=== PATIENT | female | born 1955 | race Caucasian/White ===

== ENCOUNTER 2021-03-23 05:04 | Observation (INO) ==
--- NOTE | 2021-02-26 15:38 | PAT Medication Instructions ---
Medication Instructions Date of Service February 26, 2021 Home Medications atorvastatin 10 mg tablet 10 mg PO HS levothyroxine 112 mcg capsule 112 mcg PO QAM acetaminophen [Tylenol Extra Strength] 1,000 mg PO Q6H PRN calcium carbonate-vitamin D3 [Calcium 500 + D] 2 tab PO HS cyanocobalamin (vitamin B-12) 1,000 mcg PO QAM naproxen sodium [Aleve] 440 mg PO BID PRN ASK your surgeon for instructions naproxen sodium [Aleve] 440 mg PO BID PRN DO NOT take the morning of surgery cyanocobalamin (vitamin B-12) 1,000 mcg PO QAM Take morning of surgery With a small sip of water, OTHERWISE NOTHING TO EAT OR DRINK AFTER MIDNIGHT: levothyroxine 112 mcg capsule 112 mcg PO QAM acetaminophen [Tylenol Extra Strength] 1,000 mg PO Q6H PRN (okay to take up to 4 hours prior to surgery if needed) Take evening before surgery atorvastatin 10 mg tablet 10 mg PO HS acetaminophen [Tylenol Extra Strength] 1,000 mg PO Q6H PRN (if needed) calcium carbonate-vitamin D3 [Calcium 500 + D] 2 tab PO HS Other Notes If you have any questions please call us at [phone] or [phone] or [phone] or [phone]
--- NOTE | 2021-03-03 10:24 | Anesthesiology Consultation ---
Date of Service March 03, 2021 Assessment & Plan (1) Encounter for pre-operative examination: Chart Review Chart Review: Acceptable Risk for Surgery (pending preop Covid testing results ) and Patient seen in Pre Admission Testing Per PAT appt on 03/03/21, patient resides in [facility]. Wears mask, uses good hand hygiene and socially distances. Pt visited grandson in [place], [place] on 02/18/21 (stayed in hotel). No known Covid positive contacts or Covid related symptoms. No known Covid infection in the past 90 days. Preop Covid testing scheduled 03/17/21= will await results. Educated patient to follow up with surgeon's office regarding Covid testing. Educated on importance of self quarantining, social distancing and wearing mask in public both for the patient and household contacts. Teaching & Discussion Pre-Anesthesia Teaching/Discussion Notes: Instructed NPO after midnight before surgery,except medications with 15 cc of water. Medication instructions provid ed according to the PAT guidelines. History Surgery Operation Date: 03/23/21 10:40 Proposed Procedures p Left Total Hip Arthroplasty - Elías Alexandre MD Height/Weight Height: 5 ft 8 in Weight: 79.7 kg Allergies Allergy/AdvReac Type Severity Reaction Status Date / Time No Known Allergies Allergy Verified 02/25/21 08:35 Medications Home Medications Medication Instructions Recorded Confirmed Last Taken atorvastatin 10 mg tablet 10 mg PO HS 02/22/21 02/25/21 Unknown levothyroxine 112 mcg capsule 112 mcg PO QAM 02/22/21 02/25/21 Unknown acetaminophen [Tylenol Extra 1,000 mg PO Q6H PRN 02/25/21 02/25/21 Unknown Strength] calcium carbonate-vitamin D3 2 tab PO HS 02/25/21 02/25/21 Unknown [Calcium 500 + D] cyanocobalamin (vitamin B-12) 1,000 mcg PO QAM 02/25/21 02/25/21 Unknown naproxen sodium [Aleve] 440 mg PO BID PRN 02/25/21 02/25/21 Unknown Past Medical History Medical History Bilateral hip joint arthritis Hyperlipidemia Well controlled and stable with med Hypothyroidism Well controlled and stable with med Migraine HX Exercise / Class Metabolic Activity II 4-5 Yardwork/Stairs/Walk up hill (ONE FLIGHT OF STAIRS - NO CHEST PAIN OR SOB ) Past Surgical History Surgical History H/O tubal ligation History of bunionectomy History of colonoscopy X 2 [place] teeth removed Past Anesthesia History No Hx of Anesthesia Complications and No Family Hx of Anesthesia Complications History of PONV No Hx of PONV and No Hx of Motion Sickness Social History Smoking Status: Never smoker Do You Dip or Chew Tobacco: No Hx Alcohol Use: Yes Alcohol type: wine alcohol intake frequency: a few times a month Hx Substance Use: No Review of Systems Patient denies chest pain, shortness of breath, dyspnea on exertion, reflux, cough, wheezing, palpitations. No hx of seizures, stroke, PR, apnea/snoring. No hx of blood clots or blood transfusions Physical Exam Vital Signs VITALS BP 123/77 P 77 TEMP 97.4 SP02 98% RESP 16 Constitutional no acute distress ENMT Mouth: no TMJ clicking Thyromental Distance: > or= 3.5 Finger Breadths (3.5) Mallampati Class: I Missing molar Capped to molars Neck neck extension not limited Respiratory normal respiratory effort; no respiratory distress Auscultation: lungs clear to auscultation bilaterally; no wheezes Cardiovascular Rate/Rhythm: regular rate and regular rhythm Heart Sounds: no murmur Vessels: no carotid bruit Musculoskeletal Spine: + pain with cervical ROM (mild stiffness ) Extremities: extremities normal to inspection Psychiatric Orientation: alert Testing Laboratory Results 03/03/21 10:41 03/03/21 10:51 PT 10.1 Seconds (9.0-12.0) 03/03/21 10:41 INR 1.0 (0.9-1.1) 03/03/21 10:41 APTT 26.2 Seconds (21.0-31.0) 03/03/21 10:41 Blood Type O Positive 03/03/21 10:41 Antibody Screen NEGATIVE 03/03/21 10:41 Electrocardiogram Date: 03/03/21 Findings: + NSR @ (68bpm) Normal EKG per cardio Chest X-Ray Date: 03/03/21 Findings: + NAD Incidental note is made of mild S-shaped curvature of the thoracic spine.
--- NOTE | 2021-03-03 11:11 | XRay Report ---
XR chest Pre-admission PA/Lat CLINICAL HISTORY: Preoperative evaluation. COMPARISON STUDY: No previous studies for comparison. FINDINGS: Lung volumes are normal. Lungs are clear. There is no pneumothorax or pleural effusion. Car diac size is normal. Mediastinal contours are normal. There is no evidence for pulmonary edema. Incid ental note is made of mild S-shaped curvature of the thoracic spine. IMPRESSION: No acute cardiopulmonary findings. ACT 112: Negative or not required by law. Electronically signed by: Ramez Perez M.D. 03/03/2021 11:09 AM
[2021-03-03 12:06] LABS: Basophils # (auto) 0.05 K/uL (0-0.2); Basophils % (auto) 0.9 %; Eosinophils # (auto) 0.07 K/uL (0-0.5); Eosinophils % (auto) 1.2 %; Hemoglobin 13.8 g/dL (12.0-16.0); Immature Granulocytes # (auto) 0.01 K/uL (0.00-0.02); Immature Granulocytes % (auto) 0.2 %; Lymphocytes # (auto) 1.96 K/uL (1.2-3.4); Lymphocytes % (auto) 33.6 %; Mean Corpuscular Hemoglobin 31.6 pg (25-34); Mean Corpuscular Hgb Conc 32.9 g/dL (32-36); Mean Corpuscular Volume 96.1 fL (80-100); Mean Platelet Volume 12.5 fL (7.4-10.4); Monocytes # (auto) 0.65 K/uL (0.11-0.59); Monocytes % (auto) 11.1 %; Neutrophils # (auto) 3.09 K/uL (1.4-6.5); Platelet Count 240 K/uL (130-400); RDW Coefficient of Variation 13.3 % (11.5-14.5); RDW Standard Deviation 47.3 fL (36.4-46.3); Red Blood Count 4.37 M/uL (4.2-5.4); White Blood Count 5.83 K/uL (4.8-10.8)
[2021-03-03 12:12] LABS: BUN Creatinine Ratio 18.8 (10-20); Calcium 9.8 mg/dl (8.5-10.1); Creatinine Clr Calc Pharmacy 95.3 ml/min; Est GFR (African American) 108.4; Est GFR (Non-African American) 93.5; Potassium 3.9 mmol/L (3.5-5.1)
[2021-03-03 12:17] LABS: Partial Thromboplastin Time 26.2 Seconds (21.0-31.0); Prothrombin Time 10.1 Seconds (9.0-12.0)
--- NOTE | 2021-03-04 06:13 | Electrocardiogram Report ---
Test Reason : Blood Pressure : / mmHG Vent. Rate : 068 BPM Atrial Rate : 068 BPM P-R Int : 130 ms QRS Dur : 092 ms QT Int : 394 ms P-R-T Axes : 072 065 073 degrees QTc Int : 418 ms Normal sinus rhythm Normal ECG No previous ECGs available Confirmed by Chris Munroe ([id number]) on 03/04/2021 6:12:43 AM Referred By: Elías Alexandre Confirmed By:Chris Munroe
[2021-03-23] MEDS ORDERED: LR 60ML/HR IV SCH (06:00)
[2021-03-23] MEDS ORDERED: TRANEXAMIC ACID 1,000 MG **IV Pre-op IV SCH (06:00)
[2021-03-23] MEDS ORDERED: Scopolamine 1 MG TDSY TD SCH (06:00)
[2021-03-23] MEDS ORDERED: ceFAZolin 2000MG 2,000 MG/15 ML SYR IV SCH (06:00)
[2021-03-23] MEDS ORDERED: FAMOTIDINE 20 MG TAB PO SCH (06:00)
[2021-03-23] MEDS ORDERED: LR 500ML BOLUS, THEN 15ML/HR IV SCH (06:00)
[2021-03-23] MEDS ORDERED: ACETAMINOPHEN 500 MG TAB PO SCH (06:00)
[2021-03-23] MEDS ORDERED: GABAPENTIN 600 MG DOSE PO SCH (06:00)
[2021-03-23] MEDS ORDERED: BUPIVACAINE 0.5 % 5 MG/1 ML PF 10ML VIAL ONE (06:22)
[2021-03-23] MEDS ORDERED: MoRPHine SULFATE PF 1 MG/ML 10 ML AMP/VIAL ONE (06:24)
[2021-03-23] MEDS ORDERED: MIDAZOLAM HCL 1 MG/ML 2ML VIAL ONE (06:24)
[2021-03-23] MEDS ORDERED: fentaNYL citrate 100 MCG/2 ML VIAL ONE (06:24)
[2021-03-23] MEDS ORDERED: PROPOFOL IV EMULSION 10 MG/ML 20 ML VIAL IV ONE (06:24)
[2021-03-23] MEDS ORDERED: BUPIVACAINE/EPINEPHRINE 0.5% MPF 1:200,000 30 ML VIAL ONE (06:34)
--- NOTE | 2021-03-23 06:52 | History & Physical Bridge Note ---
Date of Service March 23, 2021 History & Physical Bridge Note I have examined the patient, reviewed the History & Physical and in the interval since the performance of the History & Physical I have noted the following changes of clinical significance: no changes noted
[2021-03-23] MEDS ORDERED: NALOXONE HCL 1 MG in SODIUM CHLORIDE 0.9% 1000ML 1,000 ML IV PRN (07:37)
[2021-03-23] MEDS ORDERED: MoRPHine SULFATE PF 1 MG/ML 10 ML AMP/VIAL INT SPINAL ONE (07:37)
[2021-03-23] MEDS ORDERED: MEPERIDINE HCL 25 MG/ML CARP/VIAL IV PRN (07:37)
[2021-03-23] MEDS ORDERED: NALOXONE HCL 0.4 MG/1 ML VIAL/CARP IV PRN ×2 (07:37→09:42)
[2021-03-23] MEDS ORDERED: diphenhydrAMINE 50 MG/ML VIAL IV PRN (07:37)
[2021-03-23] MEDS ORDERED: NALOXONE HCL 0.08 MG in SYRINGE 1.8 ML IV PRN (07:37)
[2021-03-23] MEDS ORDERED: LACTATED RINGER'S 500 ML IV PRN (07:37)
[2021-03-23] MEDS ORDERED: ePHEDrine sulfate 50 MG/ML AMP IV PRN (07:37)
[2021-03-23] MEDS ORDERED: ONDANSETRON INJ 2 MG/ML 2 ML VIAL IV PRN (07:37)
[2021-03-23] MEDS ORDERED: SODIUM CHLORIDE 0.9% 1000ML 1,000 ML IV SCH (07:45)
[2021-03-23] MEDS ORDERED: DC INTRASPINAL MORPHINE SCH (07:45)
[2021-03-23] MEDS ORDERED: NO NARCOTICS OR SEDATIVES SCH (07:45)
--- NOTE | 2021-03-23 08:50 | Operative Report ---
Post Operative Report Pre & Post Diagnosis Operation Date: 03/23/21 07:00 Pre-Op Diagnosis: Left Hip Advanced Degenerative Joint Disease Post-Op Diagnosis: Left Hip Advanced Degenerative Joint Disease I identified the patient and participated in the time-out.: Yes Procedure Operation Date: 03/23/21 07:00 Actual Procedures p Left Total Hip Arthroplasty--Uncemented(Left) - Elías Alexandre MD Surgeon Elías Alexandre MD Screen Printing Equipment Setter KAILA Morris Estimated Blood Loss 200 Findings Consistent with Post-Op Diagnosis Operative findings were advanced left hip DJD. She had extensive grade 4 [id number] disease of the femoral head and acetabulum. She had osteophytes around the femoral head as well as the large anterior acetabular osteophyte. She had a little bit of retroversion of her acetabulum itself. Moderate-sized joint effusion. Very short and valgus angled femoral neck. Fluids 800 cc Specimens Left femoral head sent to pathology. Drains None Anesthesia Type Spinal MAC Complications none Disposition Accompanied Patient To Recovery: Yes Disposition: Recovery Room Indications Patient is a 65-year-old female whose had a history of pretty rapidly progressive left hip pain discomfort is gotten singly worse over the past 6 months. She failed all conservative measures. X-rays revealed advanced left hip DJD. She also had significant deformity to the proximal femur with a very valgus neck. She has cystic change on both sides of joint. She elected proceed with surgical treatment. Description of Procedure Operative implants consist of: 1. Biomet G7 size 56 mm acetabular shell. 2. 6.5 cancellous acetabular screws 135 mm length 125 mm length. 3. [place] hole personalization specialist. 4. Highly cross-linked polyethylene liner with a 56 mm outer diameter 36 mm inner diameter. 5. DePuy [place] size 13 KLA femoral stem. 6. +5/36 mm ceramic articular ball. Patient was taken to the operating, identified, placed on the operating table supine position but all contractors were properly padded. IV antibiotics tried by anesthesia team. Spinal anesthetic had been implemented holding area. Brown catheter was placed in sterile fashion. The patient was then placed in the right lateral decubitus position. An axillary roll was placed. A Stulberg hip positioner was used for positioning. The left hip and leg were then prepped and draped in usual sterile fashion. A posterior lateral approach left hip was then performed to a curvilinear incision centered over the greater trochanter but sharp dissection got through subcutaneous this down over the IT band gluteal fascia the IT band gluteal fascia incised longitudinally in line with the skin incision. The underlying greater bursa was excised. We did have to extend the incision slightly due to the very valgus neck which required a little bit longer open incision. The piriformis and external rotators along with the posterior capsule were then carefully released from the posterior aspect of the hip joint as a single layer. Great care was taken throughout the procedure protect the sciatic nerve at all times. Hip was then internally rotated and dislocated. Femoral neck osteotomy cut was made with Final Cut about 20 mm above the lesser trochanter. Femoral head was removed and sent for pathology. The femur was retracted anteriorly. Attention drawn the acetabulum. The acetabular labrum was excised per the pulmonary fat was excised. Sequential reaming the acetabulum was then performed again with size 43 and progressing up to 55. I did reamed a little bit with a 56 reamer and then placed a 56 cup. We placed instance in about 40 degrees lateral plane and 20 degrees of anteversion. Was fixed with two 6.5 cancellous acetabular screws. The large anterior osteophyte was removed. Trial liner was placed. Attention drawn the femur. The proximal femur was entered with a cookie-cutter followed by canal finder. I then broached begin the size 8. Her bone was fairly cancellous. We broached up to a 13 which had excellent fit. It was still just a little bit proud but I did not want to go up and down any harder. We then trialed the hip. With a standard offset/standard neck length just seemed a little bit tight. We could relocate the hip but it just seemed a bit tight and I was afraid that if I could not put the implant down that I could not shorten the neck. Therefore elected to place a short neck which seem to recreate leg length more appropriately and soft tissue tension appropriately. With a +5 articular ball the hip was fully stable in full extension and external rotation flexion to 90 degrees internal rotation over [address] these implants. All trial implants were removed. An apex hole personalization specialist was placed but highly cross-linked polyethylene liner was placed. A DePuy size 13 KLA femoral stem was impacted in position. +5/36 mm ceramic articular ball was placed and hip was located. Was fully stable. Attention drawn toward closing. The wound was irrigated scope soft pulsatile lavage solution. I did inject locally with 60 cc of half percent Marcaine with epinephrine. The posterior capsule and external rotators were then repaired through drill holes in the posterior trochanter as a single layer with #2 Tycron suture. The IT band gluteal fascia then closed in 1 PDS suture in running fashion the subcutaneous tissue was then closed with 2 layers the deep layer #1 Vicryl suture and subcutaneous tissues with 2-0 Dexon suture in a buried interrupted fashion. Skin was closed skin willis. Leg was then cleaned dried and a sterile dressing both Xeroform, 4 x 4's, sterile ABD pad and foam tape was applied. Patient then transferred to the recovery room in stable condition. Patient tolerated the procedure well and there were no complications. Mayo Morris, my physician clinical assistant professor, was present for the entire procedure. His assistance was essential and required for appropriate patient positioning, prepping and draping, surgical exposure, performing the technical details of the operation, placement the implants, closure of the wound, and placement of the sterile bandage. I attest to the content of the Intraoperative Record and any orders documented therein. Any exceptions are noted below.
--- NOTE | 2021-03-23 09:03 | Anesthesiology Progress Note ---
Date of Service March 23, 2021 Anesthesia Post Procedure Vital Signs Vital Signs: Temp Pulse Pulse Resp BP Pulse Ox 03/23/21 08:55 80 14 92/58 L 93 03/23/21 08:45 78 12 93/52 L 96 03/23/21 08:37 97.3 F L 79 20 91/58 L 100 03/23/21 06:00 97.9 F 18 L 18 112/65 97 03/23/21 05:39 97.7 F 72 18 122/70 96 Transfer of Care Handoff Completed per policy Notes Mental Status: alert / awake / arousable and participated in evaluation Patient Amnestic to Procedure: Yes Nausea / Vomiting: adequately controlled Pain: adequately controlled Airway Patency, RR, SpO2: stable & adequate BP & HR: stable & adequate Hydration State: stable & adequate Neuraxial Anesthesia: was administered and sensory block is resolving Anesthetic Complications: no major complications apparent and Pt Satisfied with anesthetic care
[2021-03-23] MEDS: SODIUM CHLORIDE 0.9% 1000ML 1,000 ML IV SCH ×2 (09:40→19:52)
[2021-03-23] MEDS ORDERED: bisacodyL 10 MG SUPP PR PRN (09:42)
[2021-03-23] MEDS ORDERED: ALUMINUM/MAGNESIUM SUSP 30 ML UDC PO PRN (09:42)
[2021-03-23] MEDS ORDERED: MAGNESIUM HYDROXIDE SUSP 30 ML UDC PO PRN (09:42)
[2021-03-23] MEDS ORDERED: METOCLOPRAMIDE HCL INJ 5 MG/ML 2 ML VIAL IV PRN (09:42)
[2021-03-23] MEDS ORDERED: traMADol HCL 50 MG TABLET PO PRN (09:42)
--- NOTE | 2021-03-23 09:57 | XRay Report ---
XR hip 1V LT w pelvis CLINICAL HISTORY: IN PACU - A/P PELVIS and LATERAL HIP COMPARISON: None. DISCUSSION: There are postsurgical changes of a total left hip arthroplasty. The acetabular femoral c omponents appear well seated. There is no dislocation. There are moderate osteoarthritic changes pres ent within the right hip. There is a Brown catheter in place. There is gas present within the soft ti ssues of the left hip consistent with recent surgery. IMPRESSION: Postsurgical changes of a total left hip arthroplasty. No evidence of dislocation. ACT 112: Negative or not required by law. Electronically signed by: Jorge A Chavez M.D. 03/23/2021 9:56 AM
[2021-03-23] MEDS: LEVOTHYROXINE SODIUM 112 MCG TABLET PO SCH (10:58)
[2021-03-23] MEDS: CYANOCOBALAMIN 500 MCG TABLET (VITAMIN B-12) PO SCH (10:58)
[2021-03-23] MEDS: DOCUSATE SODIUM 100 MG CAP PO SCH ×2 (10:58→21:44)
[2021-03-23] MEDS: MULTIVITAMIN TAB PO SCH (10:59)
[2021-03-23] MEDS: KETOROLAC 30 MG/ML VIAL IV SCH ×3 (11:12→23:12)
[2021-03-23] MEDS: ceFAZolin 1000MG 1,000 MG/7.5 ML SYR IV SCH ×2 (14:52→23:15)
[2021-03-23] MEDS ORDERED: TRANEXAMIC ACID / 0.7% NACL 1,000 MG/100 ML BAG IV SCH (15:00)
[2021-03-23] MEDS: Scopolamine CHECK PATCH PLACEMENT SCH ×2 (16:00→23:48)
[2021-03-23] MEDS: ASCORBIC ACID 500 MG TAB PO SCH (17:49)
[2021-03-23] MEDS ORDERED: CALCIUM 600MG + VIT D 400 IU TAB PO SCH (21:00)
[2021-03-23] MEDS ORDERED: ATORVASTATIN 10 MG TAB PO SCH (21:00)
[2021-03-23] MEDS ORDERED: SENNA 8.6 MG TAB PO SCH (21:00)
[2021-03-23] MEDS: ACETAMINOPHEN 500 MG TAB PO SCH (21:43)
[2021-03-23] MEDS: ASPIRIN 81 MG ECTAB PO SCH ×3 (21:43→21:49)
[2021-03-23] MEDS: PROSOURCE NO CARB 30 ML/PKT PO SCH (21:45)
[2021-03-24] MEDS ORDERED: traMADol HCL 50 MG TABLET PO PRN (01:37)
[2021-03-24] MEDS ORDERED: diphenhydrAMINE Capsule 25 MG CAP PO PRN (01:37)
[2021-03-24] MEDS ORDERED: HYDROmorphone INJ 0.5 MG/0.5 ML SYR IV PRN (01:37)
[2021-03-24] MEDS ORDERED: ONDANSETRON INJ 2 MG/ML 2 ML VIAL IV PRN (01:37)
[2021-03-24] MEDS: SODIUM CHLORIDE 0.9% 1000ML 1,000 ML IV SCH (03:37)
[2021-03-24] MEDS: KETOROLAC 30 MG/ML VIAL IV SCH ×2 (05:32→10:22)
[2021-03-24] MEDS: LEVOTHYROXINE SODIUM 112 MCG TABLET PO SCH (05:33)
[2021-03-24 06:46] LABS: Basophils # (auto) 0.02 K/uL (0-0.2); Basophils % (auto) 0.3 %; Eosinophils # (auto) 0.05 K/uL (0-0.5); Eosinophils % (auto) 0.7 %; Hematocrit (blood only) 33.6 % (37-47); Hemoglobin 11.1 g/dL (12.0-16.0); Immature Granulocytes # (auto) 0.01 K/uL (0.00-0.02); Immature Granulocytes % (auto) 0.1 %; Lymphocytes # (auto) 1.95 K/uL (1.2-3.4); Lymphocytes % (auto) 28.8 %; Mean Corpuscular Hemoglobin 31.7 pg (25-34); Mean Platelet Volume 11.6 fL (7.4-10.4); Monocytes % (auto) 11.8 %; Neutrophils # (auto) 3.93 K/uL (1.4-6.5); Neutrophils % (auto) 58.3 %; Platelet Count 168 K/uL (130-400); RDW Coefficient of Variation 13.4 % (11.5-14.5); RDW Standard Deviation 46.9 fL (36.4-46.3); White Blood Count 6.76 K/uL (4.8-10.8)
[2021-03-24 07:17] LABS: Calcium 8.1 mg/dl (8.5-10.1); Creatinine Clr Calc Pharmacy 119.5 ml/min; Est GFR (African American) 117.1 ml/min; Potassium 3.7 mmol/L (3.5-5.1)
[2021-03-24] MEDS ORDERED: dexAMETHasone 10 MG in SYRINGE 0 ML IV SCH (08:00)
[2021-03-24] MEDS: PROSOURCE NO CARB 30 ML/PKT PO SCH ×2 (08:46→13:58)
[2021-03-24] MEDS: ASPIRIN 81 MG ECTAB PO SCH ×2 (08:46→08:47)
[2021-03-24] MEDS: CYANOCOBALAMIN 500 MCG TABLET (VITAMIN B-12) PO SCH (08:46)
[2021-03-24] MEDS: ASCORBIC ACID 500 MG TAB PO SCH (08:47)
[2021-03-24] MEDS: DOCUSATE SODIUM 100 MG CAP PO SCH (08:47)
[2021-03-24] MEDS: MULTIVITAMIN TAB PO SCH (08:47)
[2021-03-24] MEDS: ACETAMINOPHEN 500 MG TAB PO SCH ×2 (08:48→13:58)
[2021-03-24] MEDS: Scopolamine CHECK PATCH PLACEMENT SCH (08:48)
--- NOTE | 2021-03-24 15:56 | Progress Notes ---
DATE: 03/24/2021 SUBJECTIVE: A 65-year-old female postoperative day 1 from a left hip replacement. She is doing well. Pain is controlled. She says it is more like just a soreness. No chest pain or shortness of breath. Not feeling dizzy or lightheaded. Therapy went well. OBJECTIVE: VITAL SIGNS: Temperature 36.8. Vital signs stable. GENERAL: Shows a pleasant, middle-aged female. She is sitting up in her bed, looks quite comfortable. LUNGS: Clear to auscultation. HEART: Has a regular rate and rhythm. ABDOMEN: Soft, nontender, nondistended. EXTREMITIES: Grossly neurovascularly intact except as follows. Examination of the left lower extremity reveals the dressing to be clean, dry and intact. Leg lengths were equal. Hip is located. Thigh is soft and supple. She is neurologically intact. LABORATORY DATA: Hemoglobin 11.1. Hematocrit 33.6. Electrolytes are stable. ASSESSMENT: A 65-year-old white female postop day 1 from a left hip replacement, doing well. Her pain is controlled. Hip is located. She is neurologically intact. PLAN: 1. DVT prophylaxis including thigh-high TEDs, SCDs, and aspirin twice a day. 2. PT/OT. Weight bear as tolerated. Left total hip protocol. 3. Pain control, doing well with current pain regimen. 4. Disposition: Plan to discharge to home with some home health later today if pain controlled.
--- NOTE | 2021-03-27 15:35 | Discharge Summary ---
Date of Service March 27, 2021 Discharge Data Procedures Performed Operation Date: 03/23/21 07:00 Actual Procedures p Left Total Hip Arthroplasty--Uncemented(Left) - Elías Alexandre MD Hospital Course (1) Status post total replacement of left hip: This patient is a 65 year old admitted on 03/23/21 and underwent total hip arthroplasty. She tolerated the procedure well and there were no complications. Transferred to the PACU post op and later to the orthopedic floor for further care. She was given ancef for antibiotic prophylaxis. She was also given VICTORINA stockings, SCDs, and aspirin for DVT prophylaxis. Hemoglobin, hematocrit, and vital signs were monitored during her hospital stay and remained stable. Did not require any blood transfusions. There were no complications during her hospital stay. By post op day #1 the patient was tolerating a regular diet, pain was reasonably controlled with oral pain medicine, and she was participating in physical therapy. On post op day #1 the patient was discharged home and set up with home health care. She was given printed discharge instructions including prescriptions for extra strength tylenol, aspirin, and tramadol. Continue physical therapy, weight bearing as tolerated. Continue hip precautions. Continue VICTORINA stockings. Follow up approximately 2 weeks post op or sooner if there are problems or concerns. Coding Level of Care Code None Diagnoses Status post total replacement of left hip Z96.642
== END 2021-03-24 17:00 | disposition home health service (06) ==
LOC: ASU 05:04 → 3E 05:04

== ENCOUNTER 2021-11-09 05:12 | Observation (INO) ==
--- NOTE | 2021-10-21 12:12 | Anesthesiology Consultation ---
Date of Service October 21, 2021 Assessment & Plan (1) Encounter for pre-operative examination: Chart Review Chart Review: Acceptable Risk for Surgery (pending preop Covid testing results ) and Patient NOT seen in Pre Admission Testing Per nursing assessment 10/21/2021, patient denies any recent travel. No known Covid infection in the past 90 days. Patient is fully vaccinated for Covid. No known Covid positive exposures or Covid related symptoms. Preop Covid testing scheduled 11/01/21= will await results Left VAL 03/23/2021 = done under SAB at L4-5 with 1 attempt. No anesthesia issues noted per anesthesia record. History Surgery Operation Date: 11/03/21 07:00 Proposed Procedures p Right Total Hip Arthroplasty - Elías Alexandre MD Height/Weight Height: 5 ft 8 in Weight: 82.554 kg Allergies Allergy/AdvReac Type Severity Reaction Status Date / Time No Known Allergies Allergy Verified 10/21/21 11:16 Medications Home Medications Medication Instructions Recorded Confirmed Last Taken atorvastatin 10 mg tablet 10 mg PO HS 02/22/21 10/21/21 03/22/21 22:00 levothyroxine 112 mcg capsule 112 mcg PO QAM 02/22/21 10/21/21 03/23/21 04:00 acetaminophen 500 mg capsule 1,000 mg PO Q6H PRN 02/25/21 10/21/21 03/13/21 09:00 calcium carbonate 500 mg-vitamin 2 tab PO HS 02/25/21 10/21/21 Unknown D3 5 mcg (200 unit) tablet (Calcium 500 + D) cyanocobalamin (vitamin B-12) 1,000 mcg PO QAM 02/25/21 10/21/21 03/22/21 22:00 1,000 mcg tablet naproxen sodium 220 mg capsule 440 mg PO BID PRN 02/25/21 10/21/21 03/11/21 12:00 (Alecarlos) Wheeled Walker #1 ea 03/15/21 Unknown Wheeled Walker #1 ea 03/16/21 Unknown amoxicillin 500 mg tablet 2,000 mg PO ONCE #4 tab 07/16/21 10/21/21 Unknown Past Medical History Medical History Hyperlipidemia Well controlled and stable with med Hypothyroidism Well controlled and stable with med Migraine HX Osteoarthritis Past Surgical History Surgical History H/O tubal ligation History of bunionectomy History of colonoscopy X 2 History of left hip replacement 03/23/21 [facility] [place] teeth removed Social History Smoking Status: Never smoker Do You Dip or Chew Tobacco: No Hx Alcohol Use: Yes Alcohol type: wine alcohol intake frequency: a few times a month Hx Substance Use: No Lab Results Anesthesia Preop Results Results Anesthesia Widget: WBC 5.81 K/uL (4.8-10.8) 10/07/21 Hgb 14.3 g/dL (12.0-16.0) 10/07/21 Hct 43.4 % (37-47) 10/07/21 Plt 220 K/uL (130-400) 10/07/21 Na 142 mmol/L (136-145) 10/07/21 K 3.9 mmol/L (3.5-5.1) 10/07/21 Cl 112 mmol/L (98-107) H 10/07/21 CO2 26 mmol/L (21-32) 10/07/21 BUN 10 mg/dl (7-18) 10/07/21 Creat 0.81 mg/dl (0.6-1.2) 10/07/21 Glucose Level 78 mg/dl (70-99) 10/07/21 PT 10.0 Seconds (9.0-12.0) 10/07/21 INR 1.0 (0.9-1.1) 10/07/21 Blood Type O Positive 10/07/21 Antibody Screen NEGATIVE 10/07/21 Testing Electrocardiogram Date: 03/03/21 Findings: + NSR @ (68bpm) Normal EKG per cardio Chest X-Ray Date: 03/03/21 Findings: + NAD Incidental note is made of mild S-shaped curvature of the thoracic spine.
--- NOTE | 2021-11-05 14:37 | History and Physical Report ---
DATE OF ADMISSION: 11/09/2021 CHIEF COMPLAINT: Persistent right hip pain and discomfort. HISTORY OF PRESENT ILLNESS: The patient is a 66-year-old female now a little over 6 months out from a left hip replacement, who presents for surgical treatment of her right hip. She has got a long his tory of bilateral hip pain and discomfort that has gradually gotten worse over time. The left hip hernández s recovered very nicely and now she is limited by right hip pain. She has got groin pain. The more she hurts the more she walks. She feels like this is hindering her recovery. She has been through e xtensive conservative in the past, which has become less successful. Therapy did not help and Aleve provides minimal relief. PAST MEDICAL HISTORY: 1. Arthritis. 2. Hypothyroidism. 3. Elevated cholesterol. PAST SURGICAL HISTORY: Includes, 1. Tubal cauterization. 2. Foot surgery. 3. Oral surgery. 4. Left hip replacement done on 03/23/2021. ALLERGIES: None. CURRENT MEDICATIONS: 1. Levothyroxine 112 mcg a day. 2. Atorvastatin 10 mg. 3. Vitamin D3. SOCIAL HISTORY: A 66-year-old female. She is from the [place]. . Graduated from [employer] . 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 Does not smoke. FAMILY HISTORY: Noncontributory. REVIEW OF SYSTEMS: Negative for diabetes, neurologic problem, vascular problem, or bleeding disorder s. No chest pain or shortness of breath. No history of DVT or PE. PHYSICAL EXAMINATION: GENERAL: Shows a pleasant middle-aged female. Looks to be in excellent health. HEENT: Benign. NECK: Supple. No lymphadenopathy. LUNGS: Clear to auscultation. HEART: Has a regular rate and rhythm. ABDOMEN: Soft, nontender, nondistended. EXTREMITIES: Grossly neurovascularly intact except as follows: Examination of the right hip reveals leg lengths to be equal. She does limp on this side. She has got stiffness in the hip with interna l rotation and neutral. Negative straight leg raise. No knee effusion. She is neurologically intac t. Examination of the left hip reveals a well-healed incision. No swelling. No pain with hip motio n. X-RAYS: X-rays of the right hip are reviewed. It shows advanced right hip DJD. She has complete lo ss of the superior joint space. She got cystic changes on both sides of the joint. This has progres sed over the past year. ASSESSMENT: A 66-year-old healthy female, 6+ months out from a left hip replacement with advanced ri ght hip degenerative joint disease. She has failed conservative treatment and would like to have her right hip replaced. PLAN: We will take her to the operating room and do right total hip replacement. The risks and bene fits of this procedure were explained to the patient that include but not limited to DVT, PE, , infection, neurological injury, vascular injury, bleeding problem, pain, limited range of motion, sti ffness, failure to relieve her symptoms, incomplete relief of symptoms, need for further surgery in t he future, fracture, leg length inequality, nerve palsy, etc. The patient understands and desires to proceed. Informed consent was obtained. We talked about management and she was now interested in doing this through the outpatient joint prog purnima. She recovered nicely from the other hip and feels like she can do this as an outpatient. We wi ll also send her scripts in. She will have home health. I will see her back 2 weeks postop. Job ID: [id number]
[2021-11-09] MEDS ORDERED: LR 500ML BOLUS, THEN 15ML/HR IV SCH (06:00)
[2021-11-09] MEDS ORDERED: LR 60ML/HR IV SCH (06:00)
[2021-11-09] MEDS ORDERED: ceFAZolin 2000MG 2,000 MG/15 ML SYR IV SCH (06:00)
[2021-11-09] MEDS ORDERED: MEPIVACAINE HCL 1.5% 30 ML VIAL ONE (06:27)
[2021-11-09] MEDS ORDERED: EPINEPHrine INJ 1 MG/ML AMP ONE (06:32)
[2021-11-09] MEDS ORDERED: BUPIVACAINE 0.5 % 5 MG/1 ML MPF 30ML VIAL ONE (06:32)
[2021-11-09] MEDS ORDERED: fentaNYL citrate 100 MCG/2 ML VIAL ONE (06:37)
[2021-11-09] MEDS ORDERED: MIDAZOLAM HCL 1 MG/ML 2ML VIAL ONE (06:37)
[2021-11-09] MEDS ORDERED: TRANEXAMIC ACID / 0.7% NACL 1000MG/100ML BAG IV ONE (06:51)
--- NOTE | 2021-11-09 06:55 | History & Physical Bridge Note ---
Date of Service November 09, 2021 History & Physical Bridge Note I have examined the patient, reviewed the History & Physical and in the interval since the performance of the History & Physical I have noted the following changes of clinical significance: no changes noted
[2021-11-09] MEDS ORDERED: TRANEXAMIC ACID / 0.7% NACL 1,000 MG/100 ML BAG IV SCH ×2 (07:00→20:30)
[2021-11-09] MEDS ORDERED: HYDROmorphone INJ 2 MG/ML SYR/VIAL IV PRN (07:06)
[2021-11-09] MEDS ORDERED: PROMETHAZINE HCL 12.5 MG in SODIUM CHLORIDE 0.9% 50 ML IV PRN (07:06)
[2021-11-09] MEDS ORDERED: ATROPINE SULFATE 0.1 MG/ML 10ML SYR IV PRN (07:06)
[2021-11-09] MEDS ORDERED: ePHEDrine sulfate 50 MG/ML AMP IV PRN (07:06)
[2021-11-09] MEDS ORDERED: fentaNYL citrate 100 MCG/2 ML VIAL IV PRN (07:06)
[2021-11-09] MEDS ORDERED: ONDANSETRON INJ 2 MG/ML 2 ML VIAL IV PRN ×2 (07:06→16:07)
[2021-11-09] MEDS ORDERED: ceFAZolin 2000MG 2,000 MG/15 ML SYR IV ONE (08:34)
[2021-11-09] MEDS ORDERED: oxyCODONE/ACETAMINOPHEN 5mg/325mg TAB PO PRN (08:34)
--- NOTE | 2021-11-09 08:46 | Operative Report ---
Post Operative Report Pre & Post Diagnosis Operation Date: 11/09/21 07:00 Pre-Op Diagnosis: Right Hip Degenerative Joint Disease Post-Op Diagnosis: Right Hip Degenerative Joint Disease I identified the patient and participated in the time-out.: Yes Procedure Operation Date: 11/09/21 07:00 Actual Procedures p Right Total Hip Arthroplasty, Uncemented(Right) - Elías Alexandre MD Surgeon Elías Alexandre MD Final Inspector Paper Mayo Morris PA-C Estimated Blood Loss 200 Findings Consistent with Post-Op Diagnosis Operative findings of advanced right hip DJD. She had grade 4 [id number] disease of the femoral head and acetabulum. Fairly large anterior acetabular osteophyte. Moderate-sized joint effusion. She had a very valgus short femoral neck. Fluids 1500 cc Specimens Right femoral head sent for pathology Drains None Anesthesia Type Spinal MAC Complications none Indications Patient is a 66-year-old female said a long history of bilateral pain discomfort. She had left hip replaced little over 6 months ago and is done remarkably well from that. She continued be limited by right hip pain and discomfort. X-rays show advanced hip arthritis. She elected to treat with surgical treatment. Description of Procedure Operative implants consist of: 1 Biomet G7 size 54 Man acetabular shell. 2. 6.5 cancellous acetabular screws 1 of 35 mm length and 1 to 20 mm in length. 3. [place] hole small equipment operator. 4. Highly cross-linked polyethylene liner with a 54 mm outer diameter and 36 mm inner diameter. 5. DePuy Corail size 13 KLA short neck femoral stem. 6. +5/36 mm ceramic articular ball. The patient was taken the operating, identified, and placed on the operating table supine position contractors were properly padded. IV antibiotics tried by anesthesia team. Spinal anesthetic and been implemented holding area. Patient is then placed in the left lateral cubitus position. Axillary roll was placed. A Stulberg hip positioner was used for positioning. The right hip and leg were then prepped and draped in usual sterile fashion. Posterolateral posterior the right hip was then performed through a curvilinear incision centered over the greater trochanter. Sharp dissection Through subcutaneous is done over the IT band gluteal fascia. The IT band gluteal fascia incised longitudinally in line with skin incision. The underlying greater bursa was excised. The piriformis and external rotators and the posterior hip joint capsule were then taken off the posterior aspect hip joint as a single layer. Great care was taken throughout the procedure protect the sciatic nerve at all times. Hip was internally rotated and dislocated. Femoral neck osteotomy cut was made with a Final Cut about 18 mm above the lesser trochanter. Femoral head was removed and sent for pathology. The femur was retracted anteriorly. Attention drawn the acetabulum. The acetabular labrum was excised. The pulmonary fat was excised. Sequential reaming the acetabulum was then performed again with a size 43 and progressing up to 53. I reamed a little bit with a 54 reamer and then placed a 54 cup in about 40 degrees lateral opening and 20 degrees of anteversion. It was fixed with two 6.5 cancellous acetabular screws. A large anterior osteophyte was removed. Trial liner was placed. Attention drawn the femur. The proximal femur was entered with a [employer] cutter followed by canal finder. Then broach began size 8 and progressing up to 13. Got excellent fit at 13. I trialed the hip and the short neck seem to fit most appropriately. Hip was fully stable in full extension and external rotation and flexion to 90 degrees internal rotation to over 50 degrees. Leg lengths appeared appropriate. We elected to place these in implants. All trial implants were removed. [place] hole lemonade was placed but highly cross-linked polyethylene liner was placed. A [employer]uy [employer] size 13 Short neck femoral stem was impacted in position. +5/36 mm ceramic articular ball was placed. Hip was located once again found to be stable. Attention drawn toward closing. The wound is irrigated tahir the pulsatile lavage solution. I did inject locally with 30 cc of half percent Marcaine with epinephrine. The posterior capsule and external rotators were then repaired through drill holes and a single layer with #2 Tycron suture. The IT band gluteal fascia then closed in 1 PDS suture in running fashion for subcutaneous tissue then closed in 2 layers with a deep layer of #2 Vicryl suture and subcutaneous tissues with 2-0 Dexon suture in a buried interrupted fashion. Skin was closed skin willis. Leg was then cleaned and dried and sterile dressing with Xeroform, 4 fours, ABD pad, foam tape was applied. The patient then transferred to the recovery room in stable condition. The patient tolerated the procedure well and there were no complications. Mayo Morris, my physician assistant maintenance manager, was present for the entire procedure. His assistance was essential and required for appropriate patient positioning, prepping and draping, surgical exposure, performing the technical details of the operation, placement the implants, closure of the wound, and placement of the sterile bandage. I attest to the content of the Intraoperative Record and any orders documented therein. Any exceptions are noted below.
--- NOTE | 2021-11-09 09:30 | XRay Report ---
XR hip 1V RT w pelvis CLINICAL HISTORY: Postoperative evaluation. COMPARISON: Pelvis radiograph March 23, 2021. FINDINGS: Alignment of the total right hip arthroplasty is anatomic. There is no periprosthetic frac ture or unexpected radiopaque foreign body. Left hip arthroplasty is noted. IMPRESSION: Expected findings following total right hip arthroplasty. ACT 112: Negative or not required by law. Electronically signed by: Ramez Perez M.D. 11/09/2021 9:28 AM
--- NOTE | 2021-11-09 11:06 | Anesthesiology Progress Note ---
Date of Service November 09, 2021 Anesthesia Post Procedure Vital Signs Vital Signs: Temp Pulse Pulse Pulse Resp BP Pulse Ox 11/09/21 10:46 36.5 C 70 20 101/63 97 11/09/21 10:23 36.5 C 70 18 117/70 96 11/09/21 09:50 36.5 C 68 18 113/70 96 11/09/21 09:35 36.4 C L 66 18 112/78 95 11/09/21 09:20 36.0 C L 68 18 128/72 93 11/09/21 09:17 36.5 C 69 18 111/68 97 11/09/21 08:55 70 16 130/77 97 11/09/21 08:45 36.3 C L 84 16 102/75 95 11/09/21 08:37 36.0 C L 77 12 106/59 L 95 11/09/21 05:28 36.5 C 64 18 132/81 97 Pain Intensity Right Hip: Pain Intensity: 2 Transfer of Care Handoff Completed per policy Notes Mental Status: alert / awake / arousable and participated in evaluation Patient Amnestic to Procedure: Yes Nausea / Vomiting: adequately controlled Pain: adequately controlled Airway Patency, RR, SpO2: stable & adequate BP & HR: stable & adequate Hydration State: stable & adequate Neuraxial Anesthesia: was administered and sensory block is resolving Anesthetic Complications: no major complications apparent
[2021-11-09] MEDS ORDERED: PROPOFOL IV EMULSION 10 MG/ML 20 ML VIAL IV ONE (12:35)
[2021-11-09] MEDS ORDERED: KETOROLAC 30 MG/ML VIAL ONE (12:35)
[2021-11-09] MEDS ORDERED: MAGNESIUM HYDROXIDE SUSP 30 ML UDC PO PRN (16:07)
[2021-11-09] MEDS ORDERED: HYDROmorphone INJ 0.5 MG/0.5 ML SYR IV PRN (16:07)
[2021-11-09] MEDS ORDERED: NALOXONE HCL 0.4 MG/1 ML VIAL/CARP IV PRN (16:07)
[2021-11-09] MEDS ORDERED: METOCLOPRAMIDE HCL INJ 5 MG/ML 2 ML VIAL IV PRN (16:07)
[2021-11-09] MEDS ORDERED: traMADol HCL 50 MG TABLET PO PRN (16:07)
[2021-11-09] MEDS ORDERED: diphenhydrAMINE Capsule 25 MG CAP PO PRN (16:07)
[2021-11-09] MEDS ORDERED: bisacodyL 10 MG SUPP PR PRN (16:07)
[2021-11-09] MEDS ORDERED: ALUMINUM/MAGNESIUM SUSP 30 ML UDC PO PRN (16:07)
[2021-11-09] MEDS: SODIUM CHLORIDE 0.9% 1000ML 1,000 ML IV SCH (16:25)
[2021-11-09] MEDS ORDERED: ACETAMINOPHEN 500 MG TAB PO PRN (16:26)
[2021-11-09] MEDS: KETOROLAC 30 MG/ML VIAL IV SCH ×2 (17:13→23:00)
[2021-11-09] MEDS: ceFAZolin 2000MG 2,000 MG/15 ML SYR IV SCH (17:49)
[2021-11-09] MEDS: ASCORBIC ACID 500 MG TAB PO SCH (17:49)
--- NOTE | 2021-11-09 19:36 | Progress Notes ---
DATE OF SERVICE: 11/09/2021 SUBJECTIVE: A 66-year-old white female postoperative from right hip replacement. She has done well in recovery. However, when trying to do ____ therapy, she got very hypotensive, lightheaded and naus eated. They were unable to get her up and mobilize her adequately. Her pain is controlled. No ches t pain or shortness of breath. Not feeling otherwise dizzy or ill. OBJECTIVE: VITAL SIGNS: Temperature 36.3. Vital signs are stable. GENERAL: Shows a pleasant middle-aged female. She is sitting up in bed, looks quite comfortable. LUNGS: Clear to auscultation. HEART: Has a regular rate and rhythm. ABDOMEN: Soft, nontender, nondistended. EXTREMITIES: Grossly neurovascularly intact except as follows: Examination of the right hip reveals the leg lengths to be equal. Dressing is clean, dry and intact. Thigh is soft and supple. She is neurologically intact. She can dorsiflex and plantarflex her foot appropriately. X-RAYS: X-rays of the right hip from recovery room are reviewed. It shows right uncemented total hi p arthroplasty. Components looked to be in good position. No signs of problems. ASSESSMENT: A 66-year-old female postoperative from right hip replacement. She is doing quite well, but hypotensive with standing and walking. She failed physical therapy. We will keep her overnight for observation, do therapy in the morning and likely get her home. PLAN: 1. DVT prophylaxis includes thigh-high TEDs, SCDs, and aspirin twice a day. 2. PT, OT, weightbear as tolerated. Right total hip protocol. 3. Pain control, doing okay with current pain regimen. 4. IV antibiotics x24 hours. 5. Disposition: Plan is to discharge her home with home health. We are going to keep her over the night and do therapy in the morning. Hopefully, her hypotension will be resolved by then. Job ID: [id number]
[2021-11-09] MEDS: ASPIRIN 81 MG ECTAB PO SCH (20:00)
[2021-11-09] MEDS: DOCUSATE SODIUM 100 MG CAP PO SCH (20:02)
[2021-11-09] MEDS ORDERED: SENNA 8.6 MG TAB PO SCH (21:00)
[2021-11-09] MEDS ORDERED: ATORVASTATIN 10 MG TAB PO SCH (21:00)
[2021-11-09] MEDS ORDERED: CALCIUM 600MG + VIT D 400 IU TAB PO SCH (21:00)
[2021-11-09] MEDS: ACETAMINOPHEN 500 MG TAB PO SCH (22:59)
[2021-11-10] MEDS: ceFAZolin 2000MG 2,000 MG/15 ML SYR IV SCH (01:46)
[2021-11-10] MEDS: SODIUM CHLORIDE 0.9% 1000ML 1,000 ML IV SCH (03:35)
[2021-11-10] MEDS: KETOROLAC 30 MG/ML VIAL IV SCH ×2 (05:06→10:12)
[2021-11-10] MEDS: ACETAMINOPHEN 500 MG TAB PO SCH ×2 (05:07→14:04)
[2021-11-10] MEDS ORDERED: LEVOTHYROXINE SODIUM 112 MCG TABLET PO SCH (06:30)
[2021-11-10] MEDS ORDERED: dexAMETHasone 4 MG TAB PO SCH (08:00)
[2021-11-10 08:08] LABS: Basophils # (auto) 0.01 K/uL (0-0.2); Basophils % (auto) 0.1 %; Hematocrit (blood only) 35.2 % (37-47); Hemoglobin 11.6 g/dL (12.0-16.0); Immature Granulocytes # (auto) 0.04 K/uL (0.00-0.02); Immature Granulocytes % (auto) 0.3 %; Lymphocytes # (auto) 1.46 K/uL (1.2-3.4); Lymphocytes % (auto) 11.9 %; Mean Corpuscular Hemoglobin 31.4 pg (25-34); Mean Corpuscular Volume 95.1 fL (80-100); Mean Platelet Volume 12.3 fL (7.4-10.4); Monocytes # (auto) 1.33 K/uL (0.11-0.59); Monocytes % (auto) 10.8 %; Neutrophils # (auto) 9.43 K/uL (1.4-6.5); Neutrophils % (auto) 76.9 %; Platelet Count 174 K/uL (130-400); RDW Coefficient of Variation 12.8 % (11.5-14.5); RDW Standard Deviation 44.6 fL (36.4-46.3); White Blood Count 12.27 K/uL (4.8-10.8)
[2021-11-10 08:33] LABS: BUN Creatinine Ratio 12.2 (10-20); Calcium 8.9 mg/dl (8.5-10.1); Creatinine Clr Calc Pharmacy 87.1 ml/min; Est GFR (African American) 99.2 ml/min; Est GFR (Non-African American) 85.6 ml/min; Potassium 3.8 mmol/L (3.5-5.1)
[2021-11-10] MEDS: DOCUSATE SODIUM 100 MG CAP PO SCH (08:36)
[2021-11-10] MEDS: ASPIRIN 81 MG ECTAB PO SCH (08:37)
[2021-11-10] MEDS: ASCORBIC ACID 500 MG TAB PO SCH (08:37)
[2021-11-10] MEDS ORDERED: DOCUSATE SODIUM/SENNA 50/8.6MG TAB PO SCH (09:00)
[2021-11-10] MEDS ORDERED: MULTIVITAMIN TAB PO SCH (09:00)
[2021-11-10] MEDS ORDERED: CYANOCOBALAMIN 500 MCG TABLET (VITAMIN B-12) PO SCH (09:00)
--- NOTE | 2021-11-10 14:17 | Progress Notes ---
DATE OF SERVICE: 11/10/2021. SUBJECTIVE: A 66-year-old female postoperative from right hip replacement. She is doing much better today. Earlier this morning, her symptoms of hypotension resolved. She had been up and got around and did well in therapy today. No chest pain or shortness of breath. Pain is controlled. Not feeli ng dizzy or lightheaded. OBJECTIVE: VITAL SIGNS: Temperature 36.5. Vital signs are stable. PHYSICAL EXAMINATION: GENERAL: Shows a pleasant middle-aged female. She is sitting up in bed and reading a book and looks comfortable. LUNGS: Clear to auscultation. HEART: Regular rate and rhythm. ABDOMEN: Soft, nontender, nondistended. EXTREMITIES: Grossly neurovascularly intact except as follows: Examination of the right hip reveals leg lengths are equal. Dressing is clean, dry and intact. Thigh is soft and supple. She is neurol ogically intact. ASSESSMENT: A 66-year-old female postoperative day 1 from a right hip replacement, doing well. She was hypotensive last night with orthostasis, but it resolved today. Therapy went well. Pain is cont rolled. She is neurologically intact. Hip is located. PLAN: 1. DVT prophylaxis includes thigh-high TEDs, SCDs, and aspirin twice a day. 2. PT, OT, weightbear as tolerated. Right total hip protocol. 3. Pain control, doing okay with current pain regimen. 4. Disposition: Plan to discharge to home with some home health today. Job ID: [id number]
== END 2021-11-10 15:17 | disposition home health service (06) ==
LOC: 3N 05:12 → ASU 05:12